=== PATIENT | male | born 1990 | race Caucasian/White ===

== ENCOUNTER 2020-08-18 17:14 | Emergency (ER) | payer OTHER ==
[~2020-08-18] VITALS: Ht 167.6 cm; Wt 54.4 kg
[~2020-08-18 17:14] MED LIST: ALBU90OI; ALBU90OI INH; ALBU90OI61; AMOX500 PO; CEPH500 PO; CODGUAEL PO; CYCL10 PO; FLUSAL1005; FLUT110OIA IH; HYDACE5 PO; HYDACE5325 PO; HYDGUAL120 PO; IBUP800 PO; OXYACE5T PO; PERM5TC TOP; PRED10 PO; PRED20 PO; PROM25 PO; RXHYD5325 PO; SULTRIEL PO; [UNRECOGNIZED DRUG - REMARK]
[2020-08-18] MEDS ORDERED: AMOCLA875 PO (17:45)
== END 2020-08-18 17:50 | disposition home or self-care (01) ==
LOC: ER 17:14
DX: K04.7 Periapical abscess without sinus (principal)
CPT/HCPCS: 99282

== ENCOUNTER 2023-08-03 19:07 | Emergency (ER) | payer OTHER ==
[~2023-08-03] VITALS: Ht 170.2 cm; Wt 54.4 kg
[~2023-08-03 19:07] MED LIST changes: +AMOCLA875 PO
[2023-08-03 19:36] VITALS: BP 118/83
[2023-08-03] MEDS ORDERED: Tetracaine HCl/Pf 0.5% Opth Soln 4 ml LEFTEYE ONE (19:45)
[2023-08-03] MEDS ORDERED: Fluorescein Sod 1MG Opth Strips LEFTEYE ONE (19:45)
[2023-08-03] MEDS ORDERED: NS 1,000 ML IV SCH (20:20)
[2023-08-03] MEDS ORDERED: Erythromycin 0.5% Opth Oint 1 gm LEFTEYE ONE (20:45)
== END 2023-08-03 20:58 | disposition home or self-care (01) ==
LOC: ER 19:07
DX: T15.92XA Foreign body on external eye, part unspecified, left eye, initial encounter (principal); W44.8XXA Other foreign body entering into or through a natural orifice, initial encounter; Y99.0 Civilian activity done for income or pay; Z87.891 Personal history of nicotine dependence
CPT/HCPCS: 99283; A9270; J7030